=== PATIENT | male | born 1995 | race African-American/Black ===

== ENCOUNTER 2018-01-29 20:54 | Emergency (ER) | payer MEDICAID ==
[~2018-01-29] VITALS: Ht 188 cm; Wt 83.9 kg
[2018-01-29 23:17] LABS: Basophils # (auto) 0.1 uL; Basophils % (auto) 0.7 % (0.0-2.0); Eosinophils # (auto) 0.1 uL; Eosinophils % (auto) 0.4 % (0.0-7.0); Lymphocytes # (auto) 1.6 uL; Lymphocytes % (auto) 8.3 % (10.0-50.0); Mean Corpuscular Hemoglobin 31.4 pg (28.0-32.0); Mean Corpuscular Hgb Conc. 33.3 g/dL (32.0-36.0); Mean Corpuscular Volume 94.4 fL (80.0-100.0); Monocytes # (auto) 1.5 uL; Neutrophils # (auto) 15.8 uL; Neutrophils % (auto) 82.6 % (37.0-80.0); Nucleated Red Blood Cells % 0.1 %; Platelet Count (auto) 247 10^3/uL (140-450); Red Blood Cells 5.08 10^6/uL (4.5-5.90); Red Cell Distribution Width 13.8 % (11.8-14.3)
[2018-01-29 23:22] LABS: INR 1.04 (0.9-1.15); Partial Thromboplastin Time 27.3 sec (22.64-33.71); Prothrombin Time 11.3 sec (9.37-12.3)
[2018-01-29 23:29] LABS: Albumin 4.2 g/dL (3.4-5.0); BUN/Creatinine Ratio 8.8; Bilirubin, Total 0.8 mg/dL (0.2-1.0); Calcium 9.6 mg/dL (8.5-10.1); Potassium 4.1 mmol/L (3.5-5.1); Total Protein 8.8 g/dL (6.4-8.2)
[2018-01-29] MEDS: cefTRIAXone 1GM/10ml IVPUSH 10 ML IV ONE (23:30)
[2018-01-29] MEDS: CLINDAMYCIN 600MG IV 50 ML IV ONE (23:35)
[2018-01-30 01:00] VITALS: BP 124/89
== END 2018-01-30 02:00 | disposition home or self-care (01) ==
LOC: ER 20:54
DX: J02.9 Acute pharyngitis, unspecified (principal); J06.9 Acute upper respiratory infection, unspecified
CPT/HCPCS: 36415; 70490; 80053; 85025; 85610; 85730; 87040; 99285; J3490; J7030